=== PATIENT | female | born 1985 | race Asian ===

== ENCOUNTER 2017-01-31 17:46 | Emergency (ER) | payer OTHER ==
[~2017-01-31] VITALS: Ht 167.6 cm; Wt 72.7 kg
[2017-01-31 17:59] VITALS: BP 102/69; PULSE 88; RESP 18; O2SAT 99
[2017-01-31 18:20] VITALS: BP 102/69; PULSE 88; RESP 18; O2SAT 99
--- NOTE | 2017-01-31 18:42 | ED.REPORT ---
HPI-Neck Pain Free Text HPI Notes Jan 31, 2017 ED Provider: Dr. Nguyen Pt is a 31 y/o female presenting to the ED c/o neck pain onset this morning. The patient was playing with her children on her bed this morning and in a twisting and hyperextending mechanism heard her neck crack causing her persistent severe neck pain with radiation down the right arm. She denies fever , chills, ESP[place], numbness or weakness of the arm. Nursing Notes Stated Complaint: NECK PAIN, DIFFICULT TO MOVE Chief Complaint: General Complaint Nursing Notes Reviewed: Yes Allergies: Coded Allergies: No Known Allergies (Unverified , 01/31/17) General Time Seen by Provider: 18:42 Chief Complaint Neck pain Hx Obtained From: Patient Arrived By: Walk-in Sudden in Onset?: No Onset Occurred: 5 - 8 hours ago Symptom Duration: Since onset Quality: Painful Radiation: : Arm right Severity: Current: Moderate Severity: Maximum: Severe Recent Healthcare: No recent doctor visit, No recent hospitalization Similar Sx Previous: No Past Medical History Past Medical History None reported Past Surgical History Appendectomy Tubal ligation Smoking History Unknown if Ever Smoker Social History 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 Physical Exam Initial Vital Signs Vital Signs (First) Date Time Temp Pulse Resp B/P Pulse Ox O2 Delivery O2 Flow Rate FiO2 01/31/17 17:59 36.4 88 18 102/69 99 Initial VS: Reviewed, Vital signs normal Head / Eyes: Atraumatic, Normocephalic, PERRL ENT: Mucous membranes moist, Conjunctiva normal, No scleral icterus Respiratory: Breath sounds normal, Clear to auscultation, No respiratory distress Cardiovascular: Regular rate & rhythm, Heart sounds normal, Intact distal pulses Abdomen / GI: Soft, Non-tender, No guarding, No rebound, No distention Lymphatic: No lymphadenopathy Extremities: Vascular intact, Neuro intact, No swelling, No tenderness Skin: Warm, Dry, No cyanosis Psychiatric: Mood/affect normal, Behavior normal, Normal thought content General/Constitutional: Awake, Alert, No acute distress, Cooperative, Not toxic appearing Appearance / Presentation: Positive: Uncomfortable Neck: Atraumatic, Supple, No meningismus Midline cervical tenderness Neurologic: Oriented X3, Speech NL, No motor deficits, No sensory deficits, CN II - XII intact, Cerebellar NL, Memory NL Interpretation & Diagnostics CT C-Spine Interpretation IMPRESSION: 1. No acute bony injuries of the cervical and upper thoracic spine from the foramen magnum to the T4 level. 2. 2.0 x 1.7 cm dominant right thyroid nodule. Recommend further characterization with nonemergent thyroid ultrasound. Dictated by: Shiraz Dunham M.D. on 01/31/2017 at 19:57 Approved by: Shiraz Dunham M.D. on 01/31/2017 at 20:00 Study type: CT no contrast Interpretation / Wet Read by: Interpret - Radiologist Re-Eval/Medical Decision Med Decision/Clinical Course Twisting and hyperextension mechanism causing cervical radiculopathy without sensory or motor loss. CT scan did not demonstrate a fracture or subluxation. Soft tissues looked good. She does have a thyroid nodule that will need outpatient follow-up. I plan on placing her on a course of anti-inflammatories and [place] for the pain. A soft collar for the next 48 hours. Recommend outpatient follow-up next week. Routine O. Neck injury instructions were given. Counseled Regarding: Diagnosis, Lab results, Need for follow-up, When/why to return to ED Discharge & Departure Primary Impression: Torticollis, acute Additional Impressions: Cervical strain, acute Encounter type: initial encounter Qualified Code: S16.1XXA - Strain of muscle, fascia and tendon at neck level, initial encounter Thyroid nodule Disposition: Home Discharge Condition All VS Reviewed: Yes Condition: Stable Patient Instructions: Cervical Neck Strain Exercises (GEN), Spasmodic Torticollis (ED), Thyroid Nodules (ED) Additional Instructions: The CT scan did not show an acute bony injury. You do have a thyroid nodule that was identified and this will need an outpatient ultrasound. I would like you to take upco-fun-wilghhf ibuprofen 600 mg every 8 hours for moderate pain. Take 1-2 [place] every 6 hours needed for severe pain. Wear the soft collar over the weekend. Call your doctor or the referral clinic on Thursday for follow-up. Do not drive or drink alcohol to some acetaminophen for taking the [place]. Do not hesitate to return if any problems or any worsening symptoms. Discuss with the follow-up physician the thyroid ultrasound and they will be unable to arrange this for you. Referrals: OTHER,PHYSICIAN (PCP) [facility] ED Scribe Statement Portions of this note were transcribed by Jorge Guzman. I, Dr. Nguyen personally performed the history, physical exam and medical decision-making; I reviewed and confirmed the accuracy of the information in the transcribed note. Signed by Enoch Alarcon, 01/31/17 - 1899 Fortino Nguyen DO Jan 31, 2017 18:42 JORGE GUZMAN Jan 31, 2017 18:49
[2017-01-31] MEDS ORDERED: HYDROcodone-APAP 5-325 mg Tablet PO ONE (19:25)
--- NOTE | 2017-01-31 20:01 | DRSVH ---
PROCEDURE: CT CERVICAL SPINE WITHOUT CONTRAST ([id number]) INDICATIONS: 31-year-old female with hyperextension neck injury after wrestling with her kids. TECHNIQUE: Noncontrast 3 mm thick sections acquired from the skull base to the T4 level. Sagittal and coronal r eformats were then constructed. For radiation dose reduction, the following was used: automated exp osure control, adjustment of mA and/or kV according to patient size. COMPARISON: None. FINDINGS: Image quality: Excellent. Bones: No fractures or dislocations. Visualized superior ribs are intact. There is lower cervical spine early facet joint degeneration. Soft tissues: Prevertebral soft tissues are normal in thickness. No paravertebral hematomas. No ap ical pneumothoraces. 2.0 x 1.7 cm right thyroid hypodense nodule is present. IMPRESSION: 1. No acute bony injuries of the cervical and upper thoracic spine from the foramen magnum to the T4 level. 2. 2.0 x 1.7 cm dominant right thyroid nodule. Recommend further characterization with nonemergent thyroid ultrasound. Dictated by: Shiraz Dunham M.D. on 01/31/2017 at 19:57 Approved by: Shiraz Dunham M.D. on 01/31/2017 at 20:00
== END 2017-01-31 20:29 | disposition home or self-care (01) ==
LOC: SED 17:46
DX: S16.1XXA Strain of muscle, fascia and tendon at neck level, initial encounter (principal); X50.1XXA Overexertion from prolonged static or awkward postures, initial encounter; Y93.89 Activity, other specified; Y92.89 Other specified places as the place of occurrence of the external cause; Y99.8 Other external cause status; M43.6 Torticollis; E04.1 Nontoxic single thyroid nodule
CPT/HCPCS: 72125; 96372; 99284; J1885